=== PATIENT | female | born 2000 | race African-American/Black ===

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

== ENCOUNTER 2024-02-01 12:15 | Inpatient (IN) ==
[2024-02-01] MEDS: Lactated Ringers 1000 ml BAG 1,000 ML IV ONE (13:15)
[2024-02-01 13:37] LABS: ABS Lymphocytes 1.6 10^3/uL (1.0-4.8); ABS Monocytes 0.8 10^3/uL (0.0-0.9); ABS Neutrophils 9.6 10^3/uL (1.5-7.6); ABS Nucleated RBC 0.01 10^3/ul; Eosinophil % 0.1 %; Hematocrit 29.8 % (35-45); Hemoglobin 9.5 g/dL (11.5-14.3); Lymphocyte % 13.1 %; Mean Corpuscular Hemoglobin 24.1 pg (27-33); Mean Corpuscular Hgb Conc 31.9 g/dL (31-36); Mean Corpuscular Volume 75.4 fL (80-97); Mean Platelet Volume 6.4 fL (7.5-11.2); Nucleated Red Blood Cells % 0.1 %/100WBC (0.0-0.8); Platelet Count 200 10^3/uL (150-450); Red Blood Count 3.96 10^6/uL (3.63-4.92)
[2024-02-01] MEDS: Lactated Ringers 1000 ml BAG 1,000 ML IV SCH (13:40)
[2024-02-01] MEDS ORDERED: ceFAZolin VIAL 2 GM in NS 0.9% 100 ml BAG 100 ML IVPB ONE (13:53)
[2024-02-01] MEDS ORDERED: Morphine PF AMP (0.5MG/ML) 5 MG/10 ML AMP ONE (14:31)
[2024-02-01] MEDS ORDERED: fentaNYL 100 mcg/2 ml 50 MCG/ML VIAL ONE (14:31)
[2024-02-01] MEDS ORDERED: Ondansetron 4 mg VIAL 2 MG/ML 2 ml VIAL ONE (14:34)
[2024-02-01] MEDS ORDERED: Dexamethasone IV 4 MG/ML VIAL 1 ml VIAL ONE (14:49)
[2024-02-01] MEDS ORDERED: Oxytocin 10 UNITS/ML 1 ML VIAL ONE (14:51)
[2024-02-01] MEDS ORDERED: Naloxone 0.4 mg VIAL 0.4 mg/ml 1 ml VIAL IV PUSH PRN (15:06)
[2024-02-01] MEDS ORDERED: Acetaminophen IV 1 GM/100ML 1,000 MG/100 ML BAG IV PRN (15:06)
[2024-02-01] MEDS ORDERED: Ondansetron 4 mg VIAL 2 MG/ML 2 ml VIAL IV PRN (15:06)
[2024-02-01] MEDS ORDERED: Metoclopramide 5 MG/ML VIAL (10 mg) IV PRN (15:06)
[2024-02-01] MEDS ORDERED: Acetaminophen IV 1 GM/100ML 1,000 MG/100 ML BAG IV ONE (15:07)
[2024-02-01] MEDS ORDERED: Dibucaine 1% OINT 28.35 GM TUBE PR PRN (15:46)
[2024-02-01] MEDS ORDERED: Witch Hazel PAD JAR TOPICAL PRN (15:46)
[2024-02-01] MEDS ORDERED: Glycerin ADULT 2.4 gm SUPP PR PRN (15:46)
[2024-02-01] MEDS: Sodium Citrate/Citric Acid LIQ 15 ML UDC ONE (15:58)
[2024-02-01] MEDS: Oxytocin in LR 20,000 MILLI.UNIT/1,000 ML BAG IV SCH (15:59)
[2024-02-01] MEDS ORDERED: Lactated Ringers 1000 ml BAG 1,000 ML IV SCH (16:00)
[2024-02-01] MEDS: ceFAZolin 2 GM PREMIX 2 GM/50 ML BAG ONE (16:01)
[2024-02-01] MEDS: ceFAZolin 2 GM/50 ML BAG IV ONE (16:01)
[2024-02-01 16:11] LABS: Urine Appearance Turbid; Urine Bilirubin Negative (Negative); Urine Blood 1+ (Negative); Urine Color Light-Yellow; Urine Glucose Negative (Negative); Urine Ketones Negative (Negative); Urine Nitrite Negative (Negative); Urine Protein Negative (Negative); Urine Specific Gravity 1.019 (1.002-1.030); Urine Urobilinogen Negative (Negative)
[2024-02-01 16:14] LABS: Urine Benzodiazepine Screen None Detected (None Detect); Urine Cannabinoids Screen None Detected (None Detect); Urine Opiates Screen None Detected (None Detect)
[2024-02-01 16:16] LABS: Urine Bacteria 1+ /HPF (Absent); Urine Red Blood Cell 3+(>10/hpf) /HPF (0-Trace); Urine Squamous Epithelial Cell Present /HPF (Absent); Urine White Blood Cell 1+(6-10/hpf) /HPF (0-Trace)
[2024-02-01] MEDS: Methylergonovine 0.2 mg AMPULE 1 ml AMP ONE (19:08)
[2024-02-01] MEDS: Sodium Citrate/Citric Acid LIQ 15 ML UDC PO ONE (19:17)
[2024-02-01] MEDS: Methylergonovine 0.2 mg AMPULE 1 ml AMP IM ONE (20:11)
[2024-02-01] MEDS: Oxytocin in LR 20,000 MILLI.UNIT/1,000 ML BAG IV ONE (20:13)
[2024-02-01] MEDS: Buffered Lidocaine 1% SYRIN 1 ml INTRADERM ONE (20:14)
[2024-02-02 06:19] LABS: ABS Lymphocytes 1.9 10^3/uL (1.0-4.8); ABS Monocytes 1.1 10^3/uL (0.0-0.9); ABS Neutrophils 10.2 10^3/uL (1.5-7.6); ABS Nucleated RBC 0.01 10^3/ul; Eosinophil % 0.2 %; Hematocrit 23.9 % (35-45); Hemoglobin 7.6 g/dL (11.5-14.3); Lymphocyte % 14.1 %; Mean Corpuscular Hemoglobin 24.1 pg (27-33); Mean Corpuscular Hgb Conc 31.8 g/dL (31-36); Mean Corpuscular Volume 75.8 fL (80-97); Mean Platelet Volume 6.3 fL (7.5-11.2); Nucleated Red Blood Cells % 0.1 %/100WBC (0.0-0.8); Platelet Count 170 10^3/uL (150-450); Red Blood Count 3.15 10^6/uL (3.63-4.92); Red Cell Distribution Width 16.6 % (12-17); White Blood Count 13.3 10^3/uL (3.8-11.8)
[2024-02-02] MEDS: Iron Sucrose 200 MG in NS 0.9% 100 ml BAG 100 ML IVPB ONE (13:15)
[2024-02-03 09:21] VITALS: BP 113/50
== END 2024-02-03 12:44 | disposition home or self-care (01) | DRG 540 ==
LOC: MCHOBOUT 12:15 → MCHOB 13:33
PROVIDERS: ADMIT Obstetrics & Gynecology; ATTEND Obstetrics & Gynecology